=== PATIENT | male | born 1940 | race Two or more races ===

== ENCOUNTER 2023-09-26 12:51 | Emergency (ER) | payer OTHER ==
[~2023-09-26] VITALS: Ht 170.2 cm; Wt 45.4 kg
[2023-09-26 13:38] LABS: BASOPHILS % (AUTO) 0.7 % (0.0-2.0); EOSINOPHILS # (AUTO) 0.2 K/uL (0.0-0.7); EOSINOPHILS % (AUTO) 3.2 % (0.0-6.0); HEMATOCRIT 41 % (39-51); HEMOGLOBIN 13.6 g/dL (13.5-17.5); LYMPHOCYTES # (AUTO) 1.2 K/uL (0.8-4.8); LYMPHOCYTES % (AUTO) 17.5 % (20.0-44.0); MEAN CORPUSCULAR HEMOGLOBIN 31 PG (26.0-33.0); MEAN CORPUSCULAR HGB CONC 33 g/dl (31.0-36.0); MEAN CORPUSCULAR VOLUME 92 fL (80-96); MONOCYTES # (AUTO) 0.9 K/uL (0.1-1.30); MONOCYTES % (AUTO) 13.3 % (2.0-12.0); NEUTROPHILS # (AUTO) 4.6 K/uL (1.8-8.9); NEUTROPHILS % (AUTO) 65.3 % (43.0-81.0); PLATELET COUNT (AUTO) 263 K/uL (150-450); RED BLOOD CELL COUNT(AUTO) 4.42 MIL/uL (4.5-6.0); RED CELL DISTRIBUTION WIDTH 14.1 % (11.5-15.0)
[2023-09-26 13:46] LABS: CALCIUM, SERUM 9.4 mg/dL (8.5-10.1); POTASSIUM 3.9 mmol/L (3.5-5.1)
[2023-09-26] MEDS ORDERED: ASPIRIN EC 325 MG TABLET.DR PO ONE (14:33)
[2023-09-26] MEDS: ASPIRIN EC 325 MG TABLET.DR PO ONE (14:37)
[2023-09-26] MEDS ORDERED: LORAZEPAM INJ 2 MG/ML VIAL ONE (15:24)
[2023-09-26] MEDS: LORAZEPAM INJ 2 MG/ML VIAL IV ONE (15:28)
[2023-09-26 16:14] VITALS: BP 120/69; TEMP 98.4; O2SAT 97
== END 2023-09-26 16:15 | disposition short-term general hospital (02) ==
LOC: ER 13:03
DX: R07.89 Other chest pain (principal); F03.90 Unspecified dementia, unspecified severity, without behavioral disturbance, psychotic disturbance, mood disturbance, and anxiety; E11.9 Type 2 diabetes mellitus without complications; Z20.822 Contact with and (suspected) exposure to COVID-19
CPT/HCPCS: 99285; 96374; 71045; 87426; 93005 ×2; 85025; 80048; 36415; 84484 ×2; J2060